=== PATIENT | male | born 1955 ===

== ENCOUNTER 2017-05-19 01:25 | Inpatient (IN) | payer MEDICAID, OTHER ==
[2017-05-19 02:21] LABS: BASO % 0.5 % (0.0-2.0); EOS # 0.2 K/uL (0.0-0.7); EOS % 2.6 % (0.0-4.0); HEMOGLOBIN 13.5 g/dL (12.0-18.0); LYMPH # 2.8 K/uL (1.0-4.3); LYMPH % 29.6 % (20.0-40.0); MEAN CELL VOLUME 85.5 fl (80.0-94.0); MEAN CORPUSCULAR HEMOGLOBIN 28.6 pg (27.0-31.0); MEAN CORPUSCULAR HGB CONC 33.4 g/dL (33.0-37.0); MEAN PLATELET VOLUME 8.1 fl (7.2-11.7); MONO # 0.8 K/uL (0.0-0.8); MONO % 8.1 % (0.0-10.0); NEUT # 5.6 K/uL (1.8-7.0); NEUT % 59.2 % (50.0-75.0); NRBC % 0.1 % (0.0-0.0); RBC 4.74 Mil/uL (4.40-5.90); WHITE BLOOD COUNT 9.5 K/uL (4.8-10.8)
[2017-05-19 02:29] LABS: BLOOD UREA NITROGEN 27 mg/dl (9-20); CALCIUM 9.1 mg/dL (8.4-10.2); GFR AFRICAN-AMERICAN > 60; GFR NON-AFRICAN AMERICAN > 60
--- NOTE | 2017-05-19 02:34 | ED PDOC ---
HPI: Back Time Seen by Provider: 05/19/17 01:37 Chief Complaint (Nursing): Back Pain Chief Complaint (Provider): Acute onset of right flank pain History Per: Patient History/Exam Limitations: no limitations Onset/Duration Of Symptoms: Days Current Symptoms Are (Timing): Still Present Quality Of Discomfort: Sharp Pain Scale Rating Of: 9 Previous Symptoms: Back Pain, Other (Kidney stones ) Exacerbating Factor(s): Nothing Additional Complaint(s): Acute onset at home. Pt states it feels similar to previous kidney stones. No injury. Past Medical History Reviewed: Historical Data, Nursing Documentation, Vital Signs Vital Signs: Last Vital Signs Temp 98.0 F 05/19/17 01:43 Pulse 66 05/19/17 01:43 Resp 18 05/19/17 01:43 BP 134/86 05/19/17 01:43 Pulse Ox 98 05/19/17 01:43 - Medical History PMH: No Chronic Diseases - Surgical History Surgical History: No Surg Hx - Family History Family History: States: No Known Family Hx - Living Arrangements Living Arrangements: With Family - Social History Current smoker - smoking cessation education provided: No - Allergies Allergies/Adverse Reactions: Allergies Allergy/AdvReac Type Severity Reaction Status Date / Time No Known Allergies Allergy Verified 05/19/17 01:42 Review of Systems ROS Statement: Except As Marked, All Systems Reviewed And Found Negative Constitutional: Negative for: Fever, Chills Cardiovascular: Negative for: Chest Pain Respiratory: Negative for: Cough, Shortness of Breath Gastrointestinal: Positive for: Nausea, Abdominal Pain. Negative for: Vomiting Physical Exam - Reviewed Nursing Documentation Reviewed: Yes Vital Signs Reviewed: Yes - Physical Exam Appears: Positive for: Well, Non-toxic, No Acute Distress Head Exam: Positive for: ATRAUMATIC, NORMAL INSPECTION, NORMOCEPHALIC Skin: Positive for: Normal Color, Warm, DRY Eye Exam: Positive for: Normal appearance ENT: Positive for: Normal ENT Inspection Neck: Positive for: Normal, Painless ROM Cardiovascular/Chest: Positive for: Regular Rate, Rhythm Respiratory: Positive for: Normal Breath Sounds. Negative for: Accessory Muscle Use, Respiratory Distress Gastrointestinal/Abdominal: Positive for: Normal Exam, Bowel Sounds, Soft. Negative for: Tenderness Back: Positive for: Normal Inspection Extremity: Positive for: Normal ROM Neurologic/Psych: Positive for: Alert, Oriented - Laboratory Results Result Diagrams: 05/19/17 02:10 05/19/17 02:10 - ECG O2 Sat by Pulse Oximetry: 98 Medical Decision Making Medical Decision Making: CT (+) 3 x 3 x 6 cm stone, proximal ureter with moderate hydro 0550 - Called Dr. Vaughan Discussed admission with patient. Patient would like to be admitted. Disposition - Clinical Impression Clinical Impression: Ureteral stone with hydronephrosis - Patient ED Disposition Is Patient to be Admitted: Yes - Disposition Disposition Time: 06:00 Condition: STABLE Forms: [facility] ([place])
--- NOTE | 2017-05-19 05:28 | CT ---
EXAM: CT Abdomen and Pelvis Without Intravenous Contrast CLINICAL HISTORY: 61 years old, male; Pain; Abdominal pain; Flank; Right; Additional info: Right flank pain, HX stones TECHNIQUE: Axial computed tomography images of the abdomen and pelvis without intravenous contrast. All CT scans at this facility use one or more dose reduction techniques, viz.: automated exposure control; ma/kV adjustment per patient size (including targeted exams where dose is matched to indication; i.e. head); or iterative reconstruction technique. Coronal and sagittal reformatted images were created and reviewed. COMPARISON: No relevant prior studies available. FINDINGS: Lower thorax: No acute findings. ABDOMEN: Liver: The liver is within normal limits for this noncontrast study. Gallbladder and bile ducts: Unremarkable. No calcified stones. No ductal dilation. Pancreas: Unremarkable. No ductal dilation. Spleen: Unremarkable. No splenomegaly. Adrenals: Unremarkable. No mass. Kidneys and ureters: There are multiple bilateral renal collecting system calcifications. There is moderate left hydronephrosis and hydroureter secondary to a 3 x 3 x 6 mm stone in the proximal ureter.There is mild inflammatory left perinephric stranding. Stomach and bowel: There is no wall thickening or pericolonic stranding to suggest colitis. No obstruction. Appendix: A normal appendix is identified. PELVIS: Bladder: Unremarkable. No stones. Reproductive: Unremarkable as visualized. ABDOMEN and PELVIS: Intraperitoneal space: Unremarkable. No free air. No significant fluid collection. Bones/joints: No acute fracture. No dislocation. Soft tissues: There is a fat-containing umbilical hernia. Vasculature: Unremarkable. No abdominal aortic aneurysm. Lymph nodes: Unremarkable. No enlarged lymph nodes. IMPRESSION: Moderate left hydroureteronephrosis secondary to a proximal ureteral stone.
[2017-05-19 05:33] LABS: SQUAMOUS EPITHIAL < 1 /hpf (0-5); URINE BILIRUBIN NEGATIVE (NEGATIVE); URINE BLOOD LARGE (NEGATIVE); URINE CALCIUM OXALATE CRYSTALS OCC /hpf (<OCC); URINE CLARITY CLOUDY (Clear); URINE COLOR YELLOW (YELLOW); URINE GLUCOSE (UA) NEG (Normal); URINE LEUKOCYTE ESTERASE NEG Leu/uL (Negative); URINE PROTEIN 100 mg/dL (NEGATIVE); URINE UROBILINOGEN 0.2-1.0 mg/dL (0.2-1.0)
[2017-05-19] MEDS ORDERED: Pneumococcal 23-Valent Vaccine IM ONE (10:04)
[2017-05-19] MEDS ORDERED: HYDROmorphone 0.5 mg/0.5 ml ISec IVP PRN (10:16)
[2017-05-19] MEDS ORDERED: Influenza Vaccine 18yr & older 0.5 ML/45 MCG SYR IM ONE (10:24)
[2017-05-19] MEDS ORDERED: Apap-Butalbital-Caffeine 325-50-40mg Tab PO ONE (19:00)
--- NOTE | 2017-05-20 08:03 | RAD ---
HISTORY: MD ORDER COMPARISON: Abdomen pelvis CT without contrast 05/19/2017. FINDINGS: BOWEL: Nonobstructive bowel gas pattern again appreciate with prominent retained fecal material identified in the right hemicolon once again. A 9 mm intrarenal calculus is appreciate the left renal fossa corresponding to an upper pole intrarenal calculus in prior CT noted above. A 6.5 mm triangular shaped calculus is unchanged at the medial left mendez abdomen at the level of the L3-4 disc interspace once again likely unchanged in position as compared to abdomen pelvis CT noted above. Phleboliths are reiterated in the pelvis. BONES: No suspicious bony findings. OTHER FINDINGS: None. IMPRESSION: The previously demonstrated 6.5 mm left ureteral calculus is not significantly changed in position at the L3-4 disc interspace level of the region of the ureter as compared to prior abdomen and pelvis CT 05/19/2017. Intrarenal calculus again evident left kidney. Nonobstructive bowel gas pattern.
[2017-05-20] MEDS ORDERED: Iohexol 300 100 ML IJ ONE (11:01)
[2017-05-20] MEDS ORDERED: cefTRIAXone (Rocephin) 1 gm Inj ONE (11:01)
[2017-05-20] MEDS ORDERED: Propofol 10 mg/ml Inj (20 ML) ONE ×3 (11:18→12:12)
[2017-05-20] MEDS ORDERED: ePHEDrine 50 mg/ml Inj ONE (11:18)
[2017-05-20] MEDS ORDERED: Rocuronium 10 mg/ml (5 ml) ONE (11:18)
[2017-05-20] MEDS ORDERED: Midazolam 2 MG/2 ML VIAL ONE (11:18)
[2017-05-20] MEDS ORDERED: Succinylcholine 200 mg/10 ml Inj IV ONE (11:18)
[2017-05-20] MEDS ORDERED: Sodium Chloride 0.9% 10 ML IV ONE (11:22)
[2017-05-20] MEDS ORDERED: Lactated Ringer's 1,000 ML IV ONE ×2 (11:25→15:20)
[2017-05-20] MEDS ORDERED: cefTRIAXone (Rocephin) 1 gm Inj IVPB ONE (11:32)
[2017-05-20] MEDS: HYDROmorphone 0.5 mg/0.5 ml ISec IVP PRN ×2 (13:43→14:46)
[2017-05-20 17:07] VITALS: BP 129/78; PULSE 67; RESP 20; TEMP 98; O2SAT 98
--- NOTE | 2017-05-20 17:08 | RAD ---
PROCEDURE: Intraoperative Fluoroscopy. HISTORY: CYSTO: LEFT URETERAL STENT INSERTION FINDINGS: Fluoroscopic assistance was provided. 1.0 minutes fluoroscopy time utilized during this procedure. Please refer to the operative report from [facility].
--- NOTE | 2017-06-05 08:23 | OP ---
PROCEDURE DATE: 05/20/2017 PREOPERATIVE DIAGNOSIS: Left renal colic secondary to left renal calculus. POSTOPERATIVE DIAGNOSIS: PROCEDURE PERFORMED ON THE PATIENT: Cystoscopy, left ureteroscopy and J-stent placement. DESCRIPTION OF PROCEDURE: The patient was placed on the operating room table in dorsal lithotomy position after he was given general anesthesia. The area of the groin was draped and prepped in the sterile manner. At this time, using a ureteroscope, I entered into the bladder atraumatically, identified the left ureteral orifice and over a floppy-tip guidewire, I advanced the ureteroscope to the level of renal pelvis. At this time, under fluoroscopy with the guidewire in place, I removed the ureteroscope and inserted a 6-[place] multi-[id number] double-[id number] stent. The string was left attached and was taped to the outside of his penis. Following this, the patient then was taken from the operating room in good condition. Dylan Vaughan MD
== END 2017-05-20 17:51 | disposition home or self-care (01) | DRG 694 ==
LOC: H.ER 01:25 → H.ERHOLD 06:01 → H.MEDSURG1 08:38
PROVIDERS: ADMIT Urology; ATTEND Urology
PROC: 3E0234Z Introduction of Serum, Toxoid and Vaccine into Muscle, Percutaneous Approach (ICD-10-PCS; 2017-05-19)
PROC: 0T778DZ Dilation of Left Ureter with Intraluminal Device, Via Natural or Artificial Opening Endoscopic (ICD-10-PCS; principal; 2017-05-20 12:00)
DX: N13.2 Hydronephrosis with renal and ureteral calculous obstruction (principal); Z87.442 Personal history of urinary calculi; Z23 Encounter for immunization

== ENCOUNTER 2017-05-31 07:24 | Emergency (ER) | payer MEDICAID, SELFPAY ==
[2017-05-31 07:24] VITALS: BMI 25.8
[2017-05-31 07:37] VITALS: O2SAT 98
--- NOTE | 2017-05-31 09:04 | ED PDOC ---
HPI: Male Pain Time Seen by Provider: 05/31/17 07:39 Chief Complaint (Nursing): Abdominal Pain History Per: Patient (patient presents to the ED because his ureteral stent is dislodged. Stent was inserted by Dr. Vaughan 1-2 weeks ago when he presented with kidney stones.) History/Exam Limitations: no limitations Past Medical History Reviewed: Historical Data, Nursing Documentation, Vital Signs Vital Signs: Last Vital Signs Temp Pulse Resp BP Pulse Ox 98 05/31/17 07:35 - Medical History PMH: Back Problems, Kidney Stones - Surgical History Surgical History: No Surg Hx - Family History Family History: States: No Known Family Hx - Home Medications Home Medications: Ambulatory Orders Medication Instructions Recorded Oxycodone HCl/Acetaminophen 1 tab PO QID PRN #15 tab 02/22/14 [Percocet 325 mg-5 mg] Tamsulosin HCl [Flomax] 0.4 mg PO DAILY #20 cap 02/22/14 Famotidine [Pepcid] 20 mg PO Q12 #20 tab 07/01/15 Ibuprofen [Motrin] 1 tab PO Q8 PRN #30 tab 02/10/16 - Allergies Allergies/Adverse Reactions: Allergies Allergy/AdvReac Type Severity Reaction Status Date / Time No Known Allergies Allergy Verified 05/31/17 07:34 Review of Systems ROS Statement: Except As Marked, All Systems Reviewed And Found Negative Genitourinary Male: Negative for: Dysuria, Hematuria Physical Exam - Reviewed Nursing Documentation Reviewed: Yes Vital Signs Reviewed: Yes - Physical Exam Appears: Positive for: Well, Non-toxic, No Acute Distress Head Exam: Positive for: ATRAUMATIC, NORMAL INSPECTION, NORMOCEPHALIC Skin: Positive for: Normal Color, Warm, DRY Eye Exam: Positive for: Normal appearance ENT: Positive for: Normal ENT Inspection Neck: Positive for: Normal Cardiovascular/Chest: Positive for: Regular Rate, Rhythm Respiratory: Positive for: CNT, Normal Breath Sounds Gastrointestinal/Abdominal: Positive for: Normal Exam, Bowel Sounds, Soft Male Genital Exam: Positive for: other (tip of catheter extending from urethra) Back: Positive for: Normal Inspection Extremity: Positive for: Normal ROM Neurologic/Psych: Positive for: Alert, Oriented - ECG O2 Sat by Pulse Oximetry: 98 Medical Decision Making Medical Decision Making: case d/w Dr. Vaughan. Patient had missed an appointment in [place] for further care. Instructed by Dr. Vaughan to remove catheter and instruct patient to followup in [place] as instructed. Disposition - Clinical Impression Clinical Impression: Kidney stone - Patient ED Disposition Is Patient to be Admitted: No Doctor Will See Patient In The: Office Counseled Patient/Family Regarding: Diagnosis, Need For Followup - Disposition Disposition: Routine/Home Disposition Time: 09:05 Condition: FAIR Instructions: Kidney Stones in Adults Print Language: LITHUANIAN - POA Present On Arrival: None
== END 2017-05-31 10:07 | disposition home or self-care (01) ==
LOC: MERGE 07:24 → H.ER 07:24
DX: N20.0 Calculus of kidney (principal)

== ENCOUNTER 2017-08-16 11:54 | Observation (INO) | payer MEDICAID, SELFPAY ==
[2017-08-16 11:55] VITALS: BMI 25.8
--- NOTE | 2017-08-16 15:52 | ED PDOC ---
HPI: Abdomen Time Seen by Provider: 08/16/17 12:49 Chief Complaint (Nursing): Abdominal Pain Chief Complaint (Provider): flank pain History Per: Patient (61 y/o male here with left sided flank pain that occurred after fall 2 days ago. No LOC/no head injury. Notes moderate left abdominal pain.) Past Medical History Reviewed: Historical Data, Nursing Documentation, Vital Signs Vital Signs: Last Vital Signs Temp 97.8 F 08/16/17 21:09 Pulse 55 L 08/16/17 21:09 Resp 14 08/16/17 21:09 BP 117/75 08/16/17 21:09 Pulse Ox 97 08/16/17 23:36 - Medical History PMH: Back Problems, Kidney Stones Denies: Chronic Kidney Disease - Family History Family History: States: No Known Family Hx - Home Medications Home Medications: Ambulatory Orders Medication Instructions Recorded No Known Home Med 05/19/17 - Allergies Allergies/Adverse Reactions: Allergies Allergy/AdvReac Type Severity Reaction Status Date / Time No Known Allergies Allergy Verified 05/19/17 01:42 Review of Systems ROS Statement: Except As Marked, All Systems Reviewed And Found Negative Physical Exam - Reviewed Nursing Documentation Reviewed: Yes Vital Signs Reviewed: Yes - Physical Exam Appears: Positive for: Well, Non-toxic, No Acute Distress Head Exam: Positive for: ATRAUMATIC, NORMAL INSPECTION, NORMOCEPHALIC Skin: Positive for: Normal Color, Warm, DRY Eye Exam: Positive for: EOMI, Normal appearance, PERRL ENT: Positive for: Normal ENT Inspection Neck: Positive for: Normal, Painless ROM Cardiovascular/Chest: Positive for: Regular Rate, Rhythm. Negative for: Chest Non Tender (mild lower chest wall tenderness.) Respiratory: Positive for: CNT, Normal Breath Sounds Gastrointestinal/Abdominal: Positive for: Normal Exam, Soft, Tenderness (left flank tenderness noted ) Back: Positive for: Normal Inspection Extremity: Positive for: Normal ROM Neurologic/Psych: Positive for: Alert, Oriented - Laboratory Results Result Diagrams: 08/16/17 16:29 08/16/17 16:29 - ECG O2 Sat by Pulse Oximetry: 97 - Progress ED Course And Treament: Plan: - CT Abdominal and Pelvis w/o PO or IV Contrast - CMP - Lipase - cbc (with differential) - PTT - Ribs Left and PA Chest X-Ray Time: 16:55 CT Abdomen and Pelvis w/o IV Contrast FINDINGS: LOWER THORAX: An interval 3.1 cm ovoid density is seen at the lateral left lower lobe base, pleural-based not previously identified in the same location on 05/19/[address] through the lung bases. This probably reflects a typical subsegmental atelectasis. Follow-up chest CT is advised in 3 months from the follow-up versus near term PET-CT. The bilateral lung bases are otherwise unremarkable. LIVER: Unremarkable. No gross lesion or ductal dilatation. GALLBLADDER AND BILE DUCTS: Unremarkable. PANCREAS: Unremarkable. No gross lesion or ductal dilatation. SPLEEN: Unremarkable. ADRENALS: Unremarkable. No mass. KIDNEYS AND URETERS: Interval borderline right hydroureteronephrosis is appreciated due to a spindle shaped calculus aligned parallel to the plane of the proximal right ureter measuring 4.5 x 2.8 x 7.0 mm obstructing the right ureter. The obstruction is at the approximate L3-4 disc interspace level of the lumbar spine. No definite right perinephric reaction identified. Prior left ureteral obstruction is been relieved with prominent para renal cyst again identified in the left kidney. Multiple intrarenal calculi identified at the left kidney with the 2 largest at the upper pole within a calyx, 11.0 mm greatest dimension at the more medial of the 2 and 5.4 mm at the more lateral of the 2. A solitary punctate intrarenal calculus is noted at the upper pole right kidney. VASCULATURE: Unremarkable. No aortic aneurysm. BOWEL: Unremarkable. No obstruction. No suspicious interval bowel findings in this unenhanced examination. APPENDIX: Unremarkable. Normal appendix. PERITONEUM: Unremarkable. No free fluid. No free air. LYMPH NODES: Unremarkable. No enlarged lymph nodes. BLADDER: Unremarkable. REPRODUCTIVE: Enlarged prostate gland reiterated. BONES: No acute fracture. OTHER FINDINGS: None. IMPRESSION: 1. A 7 mm intrarenal calculus is added identified spindle shaped obstructing the proximal right ureter causing borderline right hydroureteronephrosis. Greatest transverse dimension of this calculus is 4.5 mm. Please see discussion above. 2. Nonobstructing intrarenal calculi greater the left and right kidney. Prior left obstructive uropathy is not relieved with no intraureteral calculus identified in the interval. 3. Enlarged prostate gland reiterated. 4. A 3.1 cm ovoid density seen at the lateral left lower lobe probably reflecting atypical atelectasis. An interval mass is not felt to be likely as this was not present in prior 05/19/[address] A precautionary follow-up chest is advised in 3 months to demonstrate resolution or PET-CT in the near term. Time: 17:00 Ribs Left PA Chest X-Ray FINDINGS: LEFT RIBS: No fracture or focal lesion visualized. LUNGS: Clear. PLEURA: No pneumothorax or pleural fluid. CARDIOVASCULAR: Normal sized heart. No pulmonary vascular congestion. OTHER FINDINGS: Left brain calculus disease IMPRESSION: Unremarkable radiographs of the chest and left ribs. No left rib fracture. Time: 18:21 - Sodium Chloride 0.9% 1,000 ml IV 500 mls/hr - Toradol 15 mg IVP D/W Dr. Rodriges. Will evaluate tomorrow for possible stent placement. Possible OR tomorrow at 9:30am Patient unable to give urine in ED for UA Pt will be admitted to Observation for Hyronephrosis and Kidney Stone under the care of Dr. Pepito Kelley. Medical Decision Making Medical Decision Making: As patient is noted to have hydronephrosis with obstructing kidney stone and unable to urinate in ED, patient is to be admitted for urology evaluation/ treatment. Disposition - Clinical Impression Clinical Impression: Ureteral stone with hydronephrosis - Patient ED Disposition Is Patient to be Admitted: Yes - Disposition Disposition Time: 20:10 Condition: FAIR - Pt Status Changed To: Hospital Disposition Of: Observation
[2017-08-16 16:33] LABS: BASO % 0.6 % (0.0-2.0); EOS # 0.2 K/uL (0.0-0.7); HEMOGLOBIN 13.5 g/dL (12.0-18.0); LYMPH # 1.6 K/uL (1.0-4.3); LYMPH % 26.6 % (20.0-40.0); MEAN CELL VOLUME 86.1 fl (80.0-94.0); MEAN CORPUSCULAR HEMOGLOBIN 28.6 pg (27.0-31.0); MEAN CORPUSCULAR HGB CONC 33.2 g/dL (33.0-37.0); MEAN PLATELET VOLUME 7.8 fl (7.2-11.7); MONO # 0.4 K/uL (0.0-0.8); NEUT # 3.8 K/uL (1.8-7.0); NEUT % 61.8 % (50.0-75.0); RBC 4.73 Mil/uL (4.40-5.90); RED CELL DISTRIBUTION WIDTH 12.5 % (11.5-14.5); WHITE BLOOD COUNT 6.2 K/uL (4.8-10.8)
[2017-08-16 16:52] LABS: INR 1.1 (0.9-1.2); PARTIAL THROMBOPLASTIN TIME 38.6 Seconds (25.6-37.1); PROTHROMBIN TIME 11.7 Seconds (9.8-13.1)
--- NOTE | 2017-08-16 16:56 | CT ---
PROCEDURE: CT Abdomen and Pelvis without intravenous contrast HISTORY: left flank pain r/o rib fx r/o renal contusion COMPARISON: Noncontrast abdomen and pelvis CT 05/19/2017. TECHNIQUE: Helical CT of the abdomen and pelvis was performed without oral or intravenous contrast as per referring physician request. Contrast dose: None Radiation dose: Total exam DLP = 669.16 mGy-cm. This CT exam was performed using one or more of the following dose reduction techniques: Automated exposure control, adjustment of the mA and/or kV according to patient size, and/or use of iterative reconstruction technique. FINDINGS: LOWER THORAX: An interval 3.1 cm ovoid density is seen at the lateral left lower lobe base, pleural-based not previously identified in the same location on 05/19/[address] through the lung bases. This probably reflects a typical subsegmental atelectasis. Follow-up chest CT is advised in 3 months from the follow-up versus near term PET-CT. The bilateral lung bases are otherwise unremarkable. LIVER: Unremarkable. No gross lesion or ductal dilatation. GALLBLADDER AND BILE DUCTS: Unremarkable. PANCREAS: Unremarkable. No gross lesion or ductal dilatation. SPLEEN: Unremarkable. ADRENALS: Unremarkable. No mass. KIDNEYS AND URETERS: Interval borderline right hydroureteronephrosis is appreciated due to a spindle shaped calculus aligned parallel to the plane of the proximal right ureter measuring 4.5 x 2.8 x 7.0 mm obstructing the right ureter. The obstruction is at the approximate L3-4 disc interspace level of the lumbar spine. No definite right perinephric reaction identified. Prior left ureteral obstruction is been relieved with prominent para renal cyst again identified in the left kidney. Multiple intrarenal calculi identified at the left kidney with the 2 largest at the upper pole within a calyx, 11.0 mm greatest dimension at the more medial of the 2 and 5.4 mm at the more lateral of the 2. A solitary punctate intrarenal calculus is noted at the upper pole right kidney. VASCULATURE: Unremarkable. No aortic aneurysm. BOWEL: Unremarkable. No obstruction. No suspicious interval bowel findings in this unenhanced examination. APPENDIX: Unremarkable. Normal appendix. PERITONEUM: Unremarkable. No free fluid. No free air. LYMPH NODES: Unremarkable. No enlarged lymph nodes. BLADDER: Unremarkable. REPRODUCTIVE: Enlarged prostate gland reiterated. BONES: No acute fracture. OTHER FINDINGS: None. IMPRESSION: 1. A 7 mm intrarenal calculus is added identified spindle shaped obstructing the proximal right ureter causing borderline right hydroureteronephrosis. Greatest transverse dimension of this calculus is 4.5 mm. Please see discussion above. 2. Nonobstructing intrarenal calculi greater the left and right kidney. Prior left obstructive uropathy is not relieved with no intraureteral calculus identified in the interval. 3. Enlarged prostate gland reiterated. 4. A 3.1 cm ovoid density seen at the lateral left lower lobe probably reflecting atypical atelectasis. An interval mass is not felt to be likely as this was not present in prior 05/19/[address] A precautionary follow-up chest is advised in 3 months to demonstrate resolution or PET-CT in the near term.
[2017-08-16 16:58] LABS: ALB/GLOB RATIO 1.1 (1.0-2.1); ALBUMIN 4.2 g/dL (3.5-5.0); ALT/SGPT 37 U/L (21-72); AST/SGOT 32 U/L (17-59); BLOOD UREA NITROGEN 22 mg/dl (9-20); GFR AFRICAN-AMERICAN > 60; GFR NON-AFRICAN AMERICAN > 60; LIPASE 65 U/L (23-300)
--- NOTE | 2017-08-16 17:09 | RAD ---
PROCEDURE: Radiographs of the Chest and Left Ribs. HISTORY: left sided chest pain COMPARISON: None availableIn. TECHNIQUE: Frontal radiograph of the chest and multiple oblique radiographs of the left ribs were obtained. FINDINGS: LEFT RIBS: No fracture or focal lesion visualized. LUNGS: Clear. PLEURA: No pneumothorax or pleural fluid. CARDIOVASCULAR: Normal sized heart. No pulmonary vascular congestion. OTHER FINDINGS: Left brain calculus disease IMPRESSION: Unremarkable radiographs of the chest and left ribs. No left rib fracture.
[2017-08-16] MEDS ORDERED: Sodium Chloride 0.9% 1,000 ML IV STA (18:21)
[2017-08-16] MEDS ORDERED: Ciprofloxacin 400mg/200ml D5W 400 MG/200 ML BAG IVPB STA (19:46)
--- NOTE | 2017-08-16 20:13 | CP.PCM.HP ---
History of Present Illness - History of Present Illness History of Present Illness: PMD: None Chief Complaint: Left back pain The patient was seen and examined in the ED HPI: This is a 61 years old Cymro speaking male with hx of Kidney stone who comes with a two days hx of pain across the lower back, which began after he fell backwards hitting his back. The pain is worse at the left flank becoming progressively severe in intensity and radiating anterior to the left lateral abdominal wall and LLQ. He has not taken any analgesic for the pain at home. No Dysuria, frequency, macro hematuria, fever, coughing nor chest pain. PMH: Nephrolithiasis PSH: Surgery in [facility] at left lower abdomen for kidney stone removal SH: Former Smoker; No alcohol; No illegal drug use; Live with family; Unemployed FH: States: no known family Hx Allergies: NKDA Medication: denies Present on Admission - Present on Admission Any Indicators Present on Admission: No History of DVT/PE: No History of Uncontrolled Diabetes: No Urinary Catheter: No Decubitus Ulcer Present: No Review of Systems - Constitutional Constitutional: Headache. absent: Chills, Fever, Weakness - EENT Eyes: absent: Blurred Vision, Diplopia, Floaters, Photophobia, Requires Corrective Lenses Ears: absent: Decreased Hearing, Tinnitus, Dizziness Nose/Mouth/Throat: absent: Epistaxis, Nasal Congestion, Sinus Pain, Sinus Pressure - Cardiovascular Cardiovascular: absent: Chest Pain, Dyspnea, Edema - Respiratory Respiratory: absent: Cough, Dyspnea, Wheezing, Stridor - Gastrointestinal Gastrointestinal: absent: Abdominal Pain, Constipation, Nausea, Vomiting - Genitourinary Genitourinary: Flank Pain. absent: Dysuria, Hematuria, Urinary Frequency - Musculoskeletal Musculoskeletal: Back Pain. absent: Arthralgias, Joint Swelling, Numbness - Integumentary Integumentary: absent: Pruritus, Rash, Skin Ulcer, Sores, Striae, Swelling - Neurological Neurological: Headaches. absent: Confusion, Dizziness, Focal Weakness, Weakness - Psychiatric Psychiatric: absent: Anxiety, Depression, Panic Attacks - Endocrine Endocrine: absent: Palpitations, Polydipsia, Polyphagia, Polyuria - Hematologic/Lymphatic Hematologic: absent: Easy Bleeding, Easy Bruising Past Patient History - Infectious Disease Hx of Infectious Diseases: None - Past Medical History & Family History Past Medical History?: Yes - Past Social History Smoking Status: Former Smoker Chewing Tobacco Use: No Cigar Use: No Alcohol: None Drugs: Denies Home Situation {Lives}: With Family - CARDIAC Hx Cardiac Disorders: No - PULMONARY Hx Respiratory Disorders: No - NEUROLOGICAL Hx Neurological Disorder: No - HEENT Hx HEENT Problems: No - RENAL Hx Chronic Kidney Disease: No Hx Kidney Stones: Yes - ENDOCRINE/METABOLIC Hx Endocrine Disorders: No - HEMATOLOGICAL/ONCOLOGICAL Hx Blood Disorders: No - INTEGUMENTARY Hx Dermatological Problems: No - MUSCULOSKELETAL/RHEUMATOLOGICAL Hx Musculoskeletal Disorders: No Hx Falls: No - GASTROINTESTINAL Hx Gastrointestinal Disorders: No - GENITOURINARY/GYNECOLOGICAL Hx Genitourinary Disorders: No - PSYCHIATRIC Hx Psychophysiologic Disorder: No Hx Substance Use: No - SURGICAL HISTORY Hx Surgeries: Yes Other/Comment: For Left kidney stone removal? in [facility] 1990s - ANESTHESIA Hx Anesthesia: Yes Hx Anesthesia Reactions: No Meds Allergies/Adverse Reactions: Allergies Allergy/AdvReac Type Severity Reaction Status Date / Time No Known Allergies Allergy Verified 05/19/17 01:42 Physical Exam - Constitutional Appears: No Acute Distress - Head Exam Head Exam: ATRAUMATIC, NORMAL INSPECTION, NORMOCEPHALIC - Eye Exam Eye Exam: EOMI, Normal appearance Pupil Exam: NORMAL ACCOMODATION, PERRL - ENT Exam ENT Exam: Mucous Membranes Moist, Normal Exam - Neck Exam Neck exam: Positive for: Full Rom, Normal Inspection. Negative for: Lymphadenopathy, Tenderness - Respiratory Exam Respiratory Exam: Clear to Auscultation Bilateral. absent: Rales, Rhonchi, Wheezes - Cardiovascular Exam Cardiovascular Exam: REGULAR RHYTHM, RRR, +S1, +S2. absent: Gallop, JVD - GI/Abdominal Exam GI & Abdominal Exam: Normal Bowel Sounds, Soft. absent: Mass, Organomegaly - Rectal Exam Rectal Exam: Deferred - Extremities Exam Extremities exam: Negative for: calf tenderness, full ROM, pedal edema - Back Exam Back exam: CVA tenderness (R), NORMAL INSPECTION Additional comments: At the back there is no edema, erythema rashes nor bruises. The left flank is very tender to palpation - Neurological Exam Neurological exam: Alert, CN II-XII Intact, Oriented x3, Reflexes Normal - Psychiatric Exam Psychiatric exam: Normal Affect, Normal Mood - Skin Skin Exam: Dry, Intact, Normal Color, Warm Results - Vital Signs Recent Vital Signs: Last Vital Signs Temp 98.0 F 08/16/17 17:30 Pulse 72 08/16/17 17:30 Resp 14 08/16/17 17:30 BP 118/79 08/16/17 17:30 Pulse Ox 97 08/16/17 20:12 - Labs Result Diagrams: 08/16/17 16:29 08/16/17 16:29 Labs: Laboratory Results - last 24 hr 08/16/17 08/16/17 08/16/17 16:29 16:29 16:29 WBC 6.2 RBC 4.73 Hgb 13.5 Hct 40.7 MCV 86.1 MCH 28.6 MCHC 33.2 RDW 12.5 Plt Count 236 MPV 7.8 Neut % (Auto) 61.8 Lymph % (Auto) 26.6 [place] % (Auto) 7.0 Eos % (Auto) 4.0 Baso % (Auto) 0.6 Neut # (Auto) 3.8 Lymph # (Auto) 1.6 [place] # (Auto) 0.4 Eos # (Auto) 0.2 Baso # (Auto) 0.0 PT 11.7 INR 1.1 APTT 38.6 H Sodium 141 Potassium 3.7 Chloride 103 Carbon Dioxide 25 Anion Gap 17 BUN 22 H Creatinine 0.7 L Est GFR ( Amer) > 60 Est GFR (Non-Af Amer) > 60 Random Glucose 93 Calcium 9.0 Total Bilirubin 0.7 AST 32 ALT 37 Alkaline Phosphatase 126 Total Protein 8.0 Albumin 4.2 Globulin 3.8 Albumin/Globulin Ratio 1.1 Lipase 65 - Imaging and Cardiology CT Abdomen/Pelvis Status: Report reviewed by me Additional comment: 7mm intra-renal calculus obstructing the proximal right ureter causing Hydroureteronephrosis. Non obstructing intra-renal calculi greater at the left than the right kidney. Enlarge prostate. 3.1 density at the lateral left lower lobe. Probably atypical atelectasis. Follow up Chest CT in 3 months. Chest x-ray Status: Image reviewed by me Additional comment: No infiltrate Left Rib X Ray Additional comment: No fracture. Assessment & Plan - Assessment and Plan (Free Text) Assessment: #. Back pain #. Bilateral Nephrolithiasis #. Right hydroureteronephrose #. Dehydration Plan: 61 years old Cymro speaking male with hx of Kidney stone who comes with a two days hx of pain across the lower back, which began after he fell backwards hitting his back. The pain is worse at the left flank becoming progressively severe in intensity and radiating anterior to the left lateral abdominal wall and LLQ. He has not taken any analgesic for the pain at home. No Dysuria, frequency, macro hematuria, fever, coughing nor chest pain. #. Back pain on the left could be renal colic. No evidence of UTI pyelonephritis. This pain could be musculo skeletal in origin. - CT abdomen/Pelvis showed Bilateral nephrolithiasis - Consult Dr Ray urologist - Urinalysis and culture - Blood Culture - Pain management with Lidoderm patch and Morphine Sulphate - I Spoke to Dr Ray who will review the CT abdomen/Pelvis and make decision on further treatment #. Bilateral Nephrolithiasis with Right hydroureteronephrose - Urology on consult for probable Ureteral stent placement #. Dehydration - IV Fluids #. 3.1 mm Left Lower lobe Lung Density - Follow up OP for repeat Chest CT in 3 months #. DVT prophylaxis with SCD. No Anticoagulant because the patient may be going to surgery in AM #. Code Status: Full - Date & Time Date: 08/16/17 Time: 20:13
[2017-08-16] MEDS: Sodium Chloride 0.9% 1,000 ML IV SCH (21:25)
[2017-08-16] MEDS: Lidocaine 5% Patch TD SCH (22:55)
[2017-08-17 00:29] LABS: SQUAMOUS EPITHIAL < 1 /hpf (0-5); URINE BILIRUBIN NEGATIVE (NEGATIVE); URINE BLOOD NEGATIVE (NEGATIVE); URINE CLARITY CLEAR (Clear); URINE COLOR YELLOW (YELLOW); URINE GLUCOSE (UA) NEG (Normal); URINE HYALINE CAST 0-2 /hpf (0-2); URINE LEUKOCYTE ESTERASE NEG Leu/uL (Negative); URINE PROTEIN NEGATIVE (NEGATIVE); URINE UROBILINOGEN 0.2-1.0 mg/dL (0.2-1.0)
[2017-08-17 01:22] VITALS: O2SAT 96
[2017-08-17] MEDS: Sodium Chloride 0.9% 1,000 ML IV SCH (05:38)
[2017-08-17] MEDS ORDERED: Ciprofloxacin 400mg/200ml D5W 400 MG/200 ML BAG IVPB ONE (09:00)
--- NOTE | 2017-08-17 10:33 | CP.PCM.DIS ---
Provider - Provider Date of Admission: 08/16/17 20:08 Attending physician: Pepito Kelley Primary care physician: None Consults: Urology consult Time Spent in preparation of Discharge (in minutes): 10 Hospital Course - Lab Results Lab Results: Most Recent Lab Values WBC 6.2 K/uL (4.8-10.8) 08/16/17 16:29 RBC 4.73 Mil/uL (4.40-5.90) 08/16/17 16:29 Hgb 13.5 g/dL (12.0-18.0) 08/16/17 16:29 Hct 40.7 % (35.0-51.0) 08/16/17 16: MCV 86.1 fl (80.0-94.0) 08/16/17 16: MCH 28.6 pg (27.0-31.0) 08/16/17 16: MCHC 33.2 g/dL (33.0-37.0) 08/16/17 16: RDW 12.5 % (11.5-14.5) 08/16/17 16: Plt Count 236 K/uL (130-400) 08/16/17 16: MPV 7.8 fl (7.2-11.7) 08/16/17 16:29 Neut % (Auto) 61.8 % (50.0-75.0) 08/16/17 16:29 Lymph % (Auto) 26.6 % (20.0-40.0) 08/16/17 16: [place] % (Auto) 7.0 % (0.0-10.0) 08/16/17 16:29 Eos % (Auto) 4.0 % (0.0-4.0) 08/16/17 16:29 Baso % (Auto) 0.6 % (0.0-2.0) 08/16/17 16:29 Neut # (Auto) 3.8 K/uL (1.8-7.0) 08/16/17 16:29 Lymph # (Auto) 1.6 K/uL (1.0-4.3) 08/16/17 16:29 [place] # (Auto) 0.4 K/uL (0.0-0.8) 08/16/17 16:29 Eos # (Auto) 0.2 K/uL (0.0-0.7) 08/16/17 16:29 Baso # (Auto) 0.0 K/uL (0.0-0.2) 08/16/17 16:29 PT 11.7 Seconds (9.8-13.1) 08/16/17 16:29 INR 1.1 (0.9-1.2) 08/16/17 16:29 APTT 38.6 Seconds (25.6-37.1) H 08/16/17 16:29 Sodium 141 mmol/l (132-148) 08/16/17 16:29 Potassium 3.7 MMOL/L (3.6-5.0) 08/16/17 16:29 Chloride 103 mmol/L (98-107) 08/16/17 16:29 Carbon Dioxide 25 mmol/L (22-30) 08/16/17 16:29 Anion Gap 17 (10-20) 08/16/17 16:29 BUN 22 mg/dl (9-20) H 08/16/17 16:29 Creatinine 0.7 mg/dl (0.8-1.5) L 08/16/17 16:29 Est GFR ( Amer) > 60 08/16/17 16:29 Est GFR (Non-Af Amer) > 60 08/16/17 16:29 Random Glucose 93 mg/dL (75-110) 08/16/17 16:29 Calcium 9.0 mg/dL (8.4-10.2) 08/16/17 16:29 Total Bilirubin 0.7 mg/dl (0.2-1.3) 08/16/17 16:29 AST 32 U/L (17-59) 08/16/17 16:29 ALT 37 U/L (21-72) 08/16/17 16:29 Alkaline Phosphatase 126 U/L (38-126) 08/16/17 16:29 Total Protein 8.0 G/DL (6.3-8.2) 08/16/17 16:29 Albumin 4.2 g/dL (3.5-5.0) 08/16/17 16:29 Globulin 3.8 gm/dL (2.2-3.9) 08/16/17 16:29 Albumin/Globulin Ratio 1.1 (1.0-2.1) 08/16/17 Lipase 65 U/L (23-300) 08/16/17: Urine Color Yellow (YELLOW) 08/16/17 Urine Clarity Clear (Clear) 08/16/17 Urine pH 7.0 (5.0-8.0) 08/16/17: Ur Specific [place] 1.013 (1.003-1.030) 08/16/17 Urine Protein Negative mg/dL (NEGATIVE) 08/16/17 Urine Glucose (UA) Neg mg/dL (Normal) 08/16/17 Urine Ketones Negative mg/dL (NEGATIVE) 08/16/17 Urine Blood Negative (NEGATIVE) 08/16/17 Urine Nitrate Negative (NEGATIVE) 08/16/17 Urine Bilirubin Negative (NEGATIVE) 08/16/17 Urine Urobilinogen 0.2-1.0 mg/dL (0.2-1.0) 08/16/17 Ur Leukocyte Esterase Neg James/uL (Negative) 08/16/17 Urine RBC (Auto) 4 /hpf (0-3) H 08/16/17: Urine Microscopic WBC 1 /hpf (0-5) 08/16/17 Ur Squamous Epith Cells < 1 /hpf (0-5) 08/16/17 Hyaline Casts 0-2 /hpf (0-2) 08/16/17 Blood Type O POSITIVE 08/16/17 20:00 Antibody Screen Negative 08/16/17 20:00 BBK History Checked No verified bt 08/16/17 20:00 - Hospital Course Hospital Course: 61 years old [place]ian speaking male with hx of Kidney stone came with a two days hx of pain across the lower back, which began after he fell backwards hitting his back. The pain is worse at the left flank becoming progressively severe in intensity and radiating anterior to the left lateral abdominal wall and LLQ. He has not taken any analgesic for the pain at home. No Dysuria, frequency, macro hematuria, fever, coughing nor chest pain. Ct abdomen ands pelvis showed :1. A 7 mm intrarenal calculus is added identified spindle shaped obstructing the proximal right ureter causing borderline right hydroureteronephrosis. Greatest transverse dimension of this calculus is 4.5 mm. 2. Nonobstructing intrarenal calculi greater the left and right kidney. Prior left obstructive uropathy is not relieved with no intraureteral calculus identified in the interval. 3. Enlarged prostate gland reiterated. 4. A 3.1 cm ovoid density seen at the lateral left lower lobe probably reflecting atypical atelectasis. An interval mass is not felt to be likely as this was not present in prior 05/19/[address] A precautionary follow-up chest is advised in 3 months to demonstrate resolution or PET-CT in the near term He was given IV morphine, Toradol for pain control and Cipro prophylactically UA reported as clean Urology was consulted and patent placed under observation in med/surg. Patient at present is hemodynamically stable, afebrile, voiding freely with no more abdominal pain . As per DR. Rodriges [id number] can be discharged home with follow up with Dr. Rodriges at his office on Saturday Will d/c patient home. 1. Left back pain most likely muskuloskeletal- resolved tylenol prn 2.Bilateral Nephrolithiasis with Right hydroureteronephrose and right obstructing calculi follow up with Dr. Rodriges 3. Enlarged prostate- follow up with Dr. Rodriges 4. Dehydration received IV Fluids 5. 3.1 mm Left Lower lobe Lung Density most likely atelectasis Follow up with repeat Chest CT in 3 months Discharge Exam - Head Exam Head Exam: ATRAUMATIC, NORMAL INSPECTION, NORMOCEPHALIC - Eye Exam Eye Exam: EOMI, Normal appearance, PERRL Pupil Exam: NORMAL ACCOMODATION - ENT Exam ENT Exam: Mucous Membranes Moist, Normal Exam - Neck Exam Neck exam: Full Rom, Normal Inspection - Respiratory Exam Respiratory Exam: Clear to PA & Lateral, NORMAL BREATHING PATTERN. absent: Rales, Rhonchi, Wheezes - Cardiovascular Exam Cardiovascular Exam: REGULAR RHYTHM, RRR, +S1, +S2. absent: JVD - GI/Abdominal Exam GI & Abdominal Exam: Normal Bowel Sounds, Soft. absent: Distended, Guarding, Rebound, Tenderness - Rectal Exam Rectal Exam: Deferred - Extremities Exam Extremities exam: normal capillary refill, normal inspection, pedal pulses present - Back Exam Back exam: NORMAL INSPECTION - Neurological Exam Neurological exam: Alert, CN II-XII Intact, Oriented x3, Reflexes Normal - Psychiatric Exam Psychiatric exam: Normal Affect, Normal Mood - Skin Skin Exam: Dry, Intact, Normal Color, Warm Discharge Plan - Discharge Medications Prescriptions: Tamsulosin [Flomax] 0.4 mg PO DAILY #30 cap - Follow Up Plan Condition: STABLE Disposition: HOME/ ROUTINE Patient education suggested?: Yes Instructions: Hydronephrosis in Adults, Urinary Obstruction (DC), Kidney Stones (DC) Referrals: Anatoly Rodriges MD [Medical Doctor] -
[2017-08-17] MEDS: Lidocaine 5% Patch TD SCH (10:45)
[2017-08-17 11:46] VITALS: BP 130/75; PULSE 54; RESP 20; TEMP 98.1
--- NOTE | 2017-08-19 11:43 | CARD ---
APPROVED REPORT EKG Measurement Heart [id number] <Conclusion> Sinus bradycardia Otherwise normal ECG
== END 2017-08-17 13:09 | disposition home or self-care (01) ==
LOC: H.ER 11:54 → H.ERHOLD 20:08 → H.MEDSURG1 21:13
PROVIDERS: ADMIT Internal Medicine; ATTEND Internal Medicine
DX: N13.2 Hydronephrosis with renal and ureteral calculous obstruction (principal); N40.0 Benign prostatic hyperplasia without lower urinary tract symptoms; Z87.442 Personal history of urinary calculi; Z87.891 Personal history of nicotine dependence; N13.9 Obstructive and reflux uropathy, unspecified; Z91.81 History of falling; E86.0 Dehydration; J98.11 Atelectasis
CPT/HCPCS: 36415; 71101; 74176; 80053; 81003; 83690; 85025; 85610; 85730; 86850; 86900; 87086; 93005; 96361; 96365; 96375; 96376; 99284; G0378; J0744; J1885; J7030

== ENCOUNTER 2017-09-27 13:33 | Observation (INO) | payer SELFPAY ==
[2017-09-27 13:34] VITALS: BMI 25.8
--- NOTE | 2017-09-27 14:11 | ED PDOC ---
HPI: General Adult Time Seen by Provider: 09/27/17 14:11 Chief Complaint (Nursing): Chest Pain Chief Complaint (Provider): left shoulder pain, chest pain History Per: Patient, [employer] Supervisor (Luna PATEL at bedside for Estonian translation ) Additional Complaint(s): 61-year-old male with no past medical history presents to emergency department with left sided chest pain 2 weeks. Patient states 2 weeks ago pain started in left shoulder region and has since radiated to left chest wall. No associated shortness of breath or dyspnea on exertion. Patient denies history of similar symptoms. He denies trauma or injury to affected area. Patient states today the pain became worse prompting ED visit. PMD: none Past Medical History Reviewed: Historical Data, Nursing Documentation, Vital Signs Vital Signs: Last Vital Signs Temp 98.4 F 09/27/17 13:49 Pulse 60 09/27/17 13:49 Resp 18 09/27/17 13:49 BP 135/83 09/27/17 13:49 Pulse Ox 99 09/27/17 14:31 - Medical History PMH: Back Problems, Kidney Stones - Surgical History Other surgeries: Lithotripsy - Family History Family History: States: No Known Family Hx - Living Arrangements Living Arrangements: With Family - Social History Current smoker - smoking cessation education provided: No Alcohol: None Drugs: Denies - Home Medications Home Medications: Ambulatory Orders Medication Instructions Recorded Tamsulosin [Flomax] 0.4 mg PO DAILY #30 cap 08/17/17 - Allergies Allergies/Adverse Reactions: Allergies Allergy/AdvReac Type Severity Reaction Status Date / Time No Known Allergies Allergy Verified 05/19/17 01:42 Review of Systems ROS Statement: Except As Marked, All Systems Reviewed And Found Negative Constitutional: Negative for: Fever Cardiovascular: Positive for: Chest Pain. Negative for: Palpitations Respiratory: Negative for: Cough, Shortness of Breath, SOB with Exertion, Wheezing Gastrointestinal: Negative for: Nausea, Vomiting Neurological: Negative for: Headache, Dizziness Physical Exam - Reviewed Nursing Documentation Reviewed: Yes Vital Signs Reviewed: Yes - Physical Exam Appears: Positive for: Well, Non-toxic, No Acute Distress Skin: Positive for: Normal Color. Negative for: Rash Eye Exam: Positive for: Normal appearance Cardiovascular/Chest: Positive for: Regular Rate, Rhythm, Chest Non Tender ( Mild tenderness left anterior chest wall) Respiratory: Positive for: Normal Breath Sounds. Negative for: Wheezing, Respiratory Distress Gastrointestinal/Abdominal: Positive for: Soft. Negative for: Tenderness, Distended, Guarding, Rebound Back: Negative for: L CVA Tenderness, R CVA Tenderness Extremity: Positive for: Normal ROM Neurologic/Psych: Positive for: Alert, Oriented - Laboratory Results Result Diagrams: 09/27/17 15:29 09/27/17 15:29 - ECG Interpretation Of ECG: Normal sinus rhythm 63 bpm, no acute findings, reviewed by PA and ED attending O2 Sat by Pulse Oximetry: 99 Pulse Ox Interpretation: Normal - Other Rad CXR X-Ray: Interpreted by Me, Viewed By Me X-Ray Interpretation: no acute finding Medical Decision Making Medical Decision Makin61 year old with left sided chest pain and left shoulder pain Plan: EKG CXR CBC CMP Trop IVF PO aspirin Patient states that chest pain is only minimally improved after aspirin dose was given. Case was discussed with hospitalist Dr. Simmons who will admit patient for observation. Patient agrees with admission. Disposition - Clinical Impression Clinical Impression: Chest pain - Patient ED Disposition Is Patient to be Admitted: Yes - Disposition Disposition Time: 16:45 Condition: FAIR Forms: [employer] (Yi) - Pt Status Changed To: Hospital Disposition Of: Observation Results - Lab Results Lab Results: 09/27/17 09/27/17 15:29 15:29 WBC 6.1 RBC 4.70 Hgb 13.5 Hct 39.9 MCV 84.9 MCH 28.7 MCHC 33.7 RDW 13.0 Plt Count 207 MPV 8.0 Neut % (Auto) 59.9 Lymph % (Auto) 30.8 [place] % (Auto) 6.1 Eos % (Auto) 2.6 Baso % (Auto) 0.6 Neut # (Auto) 3.6 Lymph # (Auto) 1.9 [place] # (Auto) 0.4 Eos # (Auto) 0.2 Baso # (Auto) 0.0 Sodium 139 Potassium 4.1 Chloride 104 Carbon Dioxide 25 Anion Gap 14 BUN 17 Creatinine 0.7 L Est GFR ( Amer) > 60 Est GFR (Non-Af Amer) > 60 Random Glucose 90 Calcium 9.1 Total Bilirubin 0.9 AST 38 ALT 59 Alkaline Phosphatase 101 Troponin I < 0.0120 Total Protein 7.2 Albumin 4.2 Globulin 3.1 Albumin/Globulin Ratio 1.3
[2017-09-27] MEDS ORDERED: Sodium Chloride 0.9% 1,000 ML IV STA (14:29)
--- NOTE | 2017-09-27 15:28 | RAD ---
Date of service: 09/27/2017 HISTORY: Chest and shoulder pain. COMPARISON: 08/16/2017. FINDINGS: LUNGS: No active pulmonary disease. PLEURA: No significant pleural effusion identified, no pneumothorax apparent. CARDIOVASCULAR: No radiographic findings to suggest acute or significant cardiovascular disease. OSSEOUS STRUCTURES: No significant abnormalities. VISUALIZED UPPER ABDOMEN: Normal. OTHER FINDINGS: None. IMPRESSION: No active disease. No significant interval change compared to the prior examination(s).
[2017-09-27 15:40] LABS: BASO % 0.6 % (0.0-2.0); EOS # 0.2 K/uL (0.0-0.7); EOS % 2.6 % (0.0-4.0); HEMOGLOBIN 13.5 g/dL (12.0-18.0); LYMPH # 1.9 K/uL (1.0-4.3); LYMPH % 30.8 % (20.0-40.0); MEAN CELL VOLUME 84.9 fl (80.0-94.0); MEAN CORPUSCULAR HEMOGLOBIN 28.7 pg (27.0-31.0); MEAN CORPUSCULAR HGB CONC 33.7 g/dL (33.0-37.0); MONO # 0.4 K/uL (0.0-0.8); MONO % 6.1 % (0.0-10.0); NEUT # 3.6 K/uL (1.8-7.0); NEUT % 59.9 % (50.0-75.0); RBC 4.7 Mil/uL (4.40-5.90); WHITE BLOOD COUNT 6.1 K/uL (4.8-10.8)
[2017-09-27 15:51] LABS: ALB/GLOB RATIO 1.3 (1.0-2.1); ALBUMIN 4.2 g/dL (3.5-5.0); ALT/SGPT 59 U/L (21-72); AST/SGOT 38 U/L (17-59); BLOOD UREA NITROGEN 17 mg/dl (9-20); CALCIUM 9.1 mg/dL (8.4-10.2); GFR NON-AFRICAN AMERICAN > 60
--- NOTE | 2017-09-27 17:39 | CP.PCM.HP ---
History of Present Illness - History of Present Illness History of Present Illness: This is a 61 year old male with a past medical history of kidney stones, history of musculoskeletal back pain, who presented to the ED with left sided chest pain starting two weeks ago. The patient states that he began having left sided shoulder pain 2 weeks ago but now states that it is more substernal with radiation to the left shoulder. It feels like a pressure, is constant, and is worse with walking or with exertion. He denies history of similar symptoms. Denies any nausea or diaphoresis today. Denies any trauma to the affected area. In the ED, he was given ASA which improved his pain. Labwork including troponin was negative. EKG normal according to ER physician. Patient being placed on tele /obs to evaluate for acute coronary syndrome. HD stable, NAD at this time. CP improved with Aspirin. PMH: Nephrolithiasis PSH: Surgery in at left lower abdomen for kidney stone removal SH: Former Smoker (smoked 3 packs per day for about 15 years); No alcohol; No illegal drug use; Live with family; Unemployed FH: States: no known family Hx Allergies: NKDA Medication: denies Present on Admission - Present on Admission Any Indicators Present on Admission: No History of DVT/PE: No History of Uncontrolled Diabetes: No Review of Systems - Review of Systems Review of Systems: A 12 point review of systems was conducted and found to be negative other than what was mentioned in the HPI. Past Patient History - Infectious Disease Hx of Infectious Diseases: None - Past Medical History & Family History Past Medical History?: Yes - Past Social History Alcohol: None Drugs: Denies - CARDIAC Hx Cardiac Disorders: No - PULMONARY Hx Respiratory Disorders: No - NEUROLOGICAL Hx Neurological Disorder: No - HEENT Hx HEENT Problems: No - RENAL Hx Kidney Stones: Yes - ENDOCRINE/METABOLIC Hx Endocrine Disorders: No - HEMATOLOGICAL/ONCOLOGICAL Hx Human Immunodeficiency Virus (HIV): No - INTEGUMENTARY Hx Dermatological Problems: No - MUSCULOSKELETAL/RHEUMATOLOGICAL Hx Musculoskeletal Disorders: No Hx Falls: No - GASTROINTESTINAL Hx Gastrointestinal Disorders: No - GENITOURINARY/GYNECOLOGICAL Hx Genitourinary Disorders: No - PSYCHIATRIC Hx Psychophysiologic Disorder: No Hx Substance Use: No - SURGICAL HISTORY Hx Surgeries: Yes Other/Comment: For Left kidney stone removal? in [facility] - ANESTHESIA Hx Anesthesia: Yes Hx Anesthesia Reactions: No Meds Allergies/Adverse Reactions: Allergies Allergy/AdvReac Type Severity Reaction Status Date / Time No Known Allergies Allergy Verified 05/19/17 01:42 Physical Exam - Additional Findings Additional findings: Physical exam: Constitutional- cooperative, awake, alert Head- NCAT, PERRL Eye- PERRL, EOMI ENT- normal exam, MMM. Neck- normal inspection, supple, no JVD Respiratory- CTAB, no wheezes rales rhonchi Cardiovascular- RRR, +S1, +S2 no MRG GI/Abdominal- normal bowel sounds, soft, no mass, no hsm Skin- warm, dry Extremities Exam- normal capillary refill, normal inspection Neurological Exam- alert, awake, oriented Psych- normal mood, normal affect Results - Vital Signs Recent Vital Signs: Last Vital Signs Temp 98.4 F 09/27/17 13:49 Pulse 60 09/27/17 13:49 Resp 18 09/27/17 13:49 BP 135/83 09/27/17 13:49 Pulse Ox 99 09/27/17 16:47 - Labs Result Diagrams: 09/27/17 15:29 09/27/17 15:29 Labs: Laboratory Results - last 24 hr 09/27/17 09/27/17 15:29 15:29 WBC 6.1 RBC 4.70 Hgb 13.5 Hct 39.9 MCV 84.9 MCH 28.7 MCHC 33.7 RDW 13.0 Plt Count 207 MPV 8.0 Neut % (Auto) 59.9 Lymph % (Auto) 30.8 [place] % (Auto) 6.1 Eos % (Auto) 2.6 Baso % (Auto) 0.6 Neut # (Auto) 3.6 Lymph # (Auto) 1.9 [place] # (Auto) 0.4 Eos # (Auto) 0.2 Baso # (Auto) 0.0 Sodium 139 Potassium 4.1 Chloride 104 Carbon Dioxide 25 Anion Gap 14 BUN 17 Creatinine 0.7 L Est GFR ( Amer) > 60 Est GFR (Non-Af Amer) > 60 Random Glucose 90 Calcium 9.1 Total Bilirubin 0.9 AST 38 ALT 59 Alkaline Phosphatase 101 Troponin I < 0.0120 Total Protein 7.2 Albumin 4.2 Globulin 3.1 Albumin/Globulin Ratio 1.3 Assessment & Plan - Assessment and Plan (Free Text) Plan: This is a 61 year old male with a past medical history of kidney stones, history of musculoskeletal back pain, who presented to the ED with left sided chest pain starting two weeks ago. The patient states that he began having left sided shoulder pain 2 weeks ago but now states that it is more substernal with radiation to the left shoulder. It feels like a pressure, is constant, and is worse with walking or with exertion. He denies history of similar symptoms. Denies any nausea or diaphoresis today. Denies any trauma to the affected area. In the ED, he was given ASA which improved his pain. Labwork including troponin was negative. EKG normal according to ER physician. Patient being placed on tele /obs to evaluate for acute coronary syndrome. HD stable, NAD at this time. CP improved with Aspirin. 1) Typical chest pain, evaluate for acute coronary syndrome - Tele/obs - Serial troponins total x 3, first negative - Echocardiogram, low threshold for cardiology consult if positive findings or wall motion abnormalities - ASA 325 mg po daily - Nitrostat PRN for chest pain - repeat EKG in AM - Check TSH, Lipid panel in AM 2) 3.1 mm left lower lung density on previous admission - Pt to have repeat CT chest in 2 months 3) DVT prophylaxis - Heparin SC q 8 hours
[2017-09-27] MEDS ORDERED: Pneumococcal 23-Valent Vaccine IM ONE (21:50)
[2017-09-28 08:22] VITALS: TEMP 98.5
[2017-09-28 12:16] VITALS: BP 134/80; PULSE 57; RESP 20; O2SAT 95
--- NOTE | 2017-09-28 13:35 | CP.PCM.DIS ---
Provider - Provider Date of Admission: 09/27/17 16:43 Attending physician: Mio Simmons MD Time Spent in preparation of Discharge (in minutes): 25 Diagnosis - Discharge Diagnosis (1) Chest pain Status: Acute Comment: no recurrence of chest pain. Troponins were negative for ischemia Hospital Course - Lab Results Lab Results: Most Recent Lab Values WBC 6.1 K/uL (4.8-10.8) 09/27/17 15: RBC 4.70 Mil/uL (4.40-5.90) 09/27/17 15:29 Hgb 13.5 g/dL (12.0-18.0) 09/27/17 15: Hct 39.9 % (35.0-51.0) 09/27/17 15: MCV 84.9 fl (80.0-94.0) 09/27/17 15: MCH 28.7 pg (27.0-31.0) 09/27/17 15: MCHC 33.7 g/dL (33.0-37.0) 09/27/17 15: RDW 13.0 % (11.5-14.5) 09/27/17 15: Plt Count 207 K/uL (130-400) 09/27/17 15: MPV 8.0 fl (7.2-11.7) 09/27/17 15: Neut % (Auto) 59.9 % (50.0-75.0) 09/27/17 15: Lymph % (Auto) 30.8 % (20.0-40.0) 09/27/17 15:29 [place] % (Auto) 6.1 % (0.0-10.0) 09/27/17 15: Eos % (Auto) 2.6 % (0.0-4.0) 09/27/17 15: Baso % (Auto) 0.6 % (0.0-2.0) 09/27/17 15: Neut # (Auto) 3.6 K/uL (1.8-7.0) 09/27/17 15: Lymph # (Auto) 1.9 K/uL (1.0-4.3) 09/27/17 15:29 [place] # (Auto) 0.4 K/uL (0.0-0.8) 09/27/17 15:29 Eos # (Auto) 0.2 K/uL (0.0-0.7) 09/27/17 15:29 Baso # (Auto) 0.0 K/uL (0.0-0.2) 09/27/17 15:29 Sodium 139 mmol/l (132-148) 09/27/17 15:29 Potassium 4.1 MMOL/L (3.6-5.0) 09/27/17 15: Chloride 104 mmol/L (98-107) 09/27/17 15: Carbon Dioxide 25 mmol/L (22-30) 09/27/17 15:29 Anion Gap 14 (10-20) 09/27/17 15:29 BUN 17 mg/dl (9-20) 09/27/17 15:29 Creatinine 0.7 mg/dl (0.8-1.5) L 09/27/17 15:29 Est GFR ( Amer) > 60 09/27/17 15:29 Est GFR (Non-Af Amer) > 60 09/27/17 15:29 Random Glucose 90 mg/dL (75-110) 09/27/17 15: Calcium 9.1 mg/dL (8.4-10.2) 09/27/17 15:29 Total Bilirubin 0.9 mg/dl (0.2-1.3) 09/27/17 15:29 AST 38 U/L (17-59) 09/27/17 15:29 ALT 59 U/L (21-72) 09/27/17 15:29 Alkaline Phosphatase 101 U/L (38-126) 09/27/17 15:29 Troponin I < 0.0120 ng/mL (0.00-0.120) 09/28/17 09:55 Total Protein 7.2 G/DL (6.3-8.2) 09/27/17 15:29 Albumin 4.2 g/dL (3.5-5.0) 09/27/17 15:29 Globulin 3.1 gm/dL (2.2-3.9) 09/27/17 15:29 Albumin/Globulin Ratio 1.3 (1.0-2.1) 09/27/17 15:29 - Hospital Course Hospital Course: 61 yo male with no significant PMH seen in the ER because of left sided chest pain since 2 weeks ago accompanied with left shoulder pain. Patient was placed on chest pain observation and was given ASA. Patient had no recurrence of chest pain while in the unit and 3 sets of Troponins were negative for ischemia. Patient was discharged in stable condition. Discharge Exam - Head Exam Head Exam: ATRAUMATIC - Eye Exam Eye Exam: absent: Scleral icterus - ENT Exam ENT Exam: Mucous Membranes Moist - Respiratory Exam Respiratory Exam: absent: Rales, Rhonchi, Wheezes, Respiratory Distress - Cardiovascular Exam Cardiovascular Exam: REGULAR RHYTHM, +S1, +S2 - GI/Abdominal Exam GI & Abdominal Exam: Soft. absent: Tenderness - Rectal Exam Rectal Exam: Deferred - Back Exam Back exam: NORMAL INSPECTION - Neurological Exam Neurological exam: Alert, Oriented x3 - Psychiatric Exam Psychiatric exam: Normal Affect - Skin Skin Exam: Dry, Intact Discharge Plan - Follow Up Plan Condition: FAIR Disposition: HOME/ ROUTINE Instructions: Chest Pain (DC)
--- NOTE | 2017-09-28 14:24 | CARD ---
APPROVED REPORT Date of service: 09/28/2017 EXAM: Two-dimensional and M-mode echocardiogram with Doppler and color Doppler. Other Information Quality : GoodRhythm : NSR INDICATION Chest Pain 2D DIMENSIONS IVSd0.86 (0.7-1.1cm)LVDd5.13 (3.9-5.9cm) LVOT Diameter2.51 (1.8-2.4cm)PWd0.98 (0.7-1.1cm) IVSs1.25 (0.8-1.2cm)LVDs3.23 (2.5-4.0cm) FS (%) 37.0 %PWs1.19 (0.8-1.2cm) M-Mode DIMENSIONS Left Atrium (MM)4.32 (2.5-4.0cm)IVSd1.00 (0.7-1.1cm) Aortic Root3.29 (2.2-3.7cm)LVDd6.15 (4.0-5.6cm) Aortic Cusp Exc.2.41 (1.5-2.0cm)PWd0.97 (0.7-1.1cm) IVSs1.29 cmFS (%) 38 % LVDs3.79 (2.0-3.8cm)PWs1.79 cm Aortic Valve AoV Peak Cpldlylw427.1cm/sAoV VTI33.6cmAO Peak GR.9mmHg LVOT Peak Sjjjtwmw67.7cm/sLVOT VTI20.08cmAO Mean GR.5mmHg JB (VMAX)1.07of8AMJ (VTI)1.35ui5BL P 1/2 Mxpv262av Mitral Valve MV E Teehxkke35.2cm/sMV DECEL MWGC028hsFQ A Qjgevzxx94.4cm/s MV BOD63ukN/A ratio0.9MVA (PHT)2.47cm2 TDI Lateral E' Peak V14.26cm/sMedial E' Peak V10.43cm/sE/Lateral E'3.5 E/Medial E'4.8 Pulmonary Valve PV Peak Eltacvsz570.9cm/s Tricuspid Valve TR Peak Cytaekwo901sf/sRAP EEDQCRAN95oeMfAM Peak Gr.16mmHg OWKD30ypRm LEFT VENTRICLE The left ventricle is normal size. There is borderline to mild concentric left ventricular hypertrophy. The left ventricular function is normal. The left ventricular ejection fraction is within the normal range. The Ejection Fraction is 60-65%. There is normal LV segmental wall motion. The left ventricular diastolic function is normal. RIGHT VENTRICLE The right ventricle is mildly to moderately dilated. There is normal right ventricular wall thickness. Systolic function is mildly reduced. ATRIA The left atrium is borderline dilated. The right atrium is mildly dilated. AORTIC VALVE The aortic valve is normal in structure. There is mild aortic regurgitation. There is no aortic valvular stenosis. MITRAL VALVE The mitral valve is normal in structure. There is no mitral valve stenosis. Mitral regurgitation is trace to mild. TRICUSPID VALVE The tricuspid valve is normal in structure. There is mild tricuspid regurgitation. PULMONIC VALVE The pulmonary valve is normal in structure. There is no pulmonic valvular regurgitation. GREAT VESSELS The aortic root is normal in size. The IVC is normal in size and collapses >50% with inspiration. PERICARDIAL EFFUSION The pericardium appears normal. <Conclusion> The left ventricular function is normal. The left ventricular ejection fraction is within the normal range. The Ejection Fraction is 60-65%. There is mild aortic regurgitation. Mitral regurgitation is trace to mild. There is mild tricuspid regurgitation. The right ventricle is mildly to moderately dilated. Systolic function is mildly reduced.
--- NOTE | 2017-09-28 15:03 | CARD ---
APPROVED REPORT Date of service: 09/27/2017 EKG Measurement Heart [id number] <Conclusion> Normal sinus rhythm Normal ECG
== END 2017-09-28 15:20 | disposition home or self-care (01) ==
LOC: H.ER 13:33 → H.ERHOLD 16:43 → H.TEL 20:40
DX: R07.89 Other chest pain (principal); Z87.442 Personal history of urinary calculi; Z87.891 Personal history of nicotine dependence; Z23 Encounter for immunization
CPT/HCPCS: 36415; 71045; 80053; 84484; 85025; 90471; 90732; 93005; 93306; 96360; 99285; G0378; J1644; J7030

== ENCOUNTER 2017-10-30 11:31 | Emergency (ER) | payer SELFPAY ==
[2017-10-30 11:31] VITALS: BMI 25.8
[2017-10-30 11:38] VITALS: BP 110/72; PULSE 67; RESP 17; O2SAT 96
[2017-10-30 12:21] VITALS: TEMP 98
--- NOTE | 2017-10-30 12:21 | ED PDOC ---
Lower Extremity Pain/Injury Time Seen by Provider: 10/30/17 12:10 Chief Complaint (Nursing): Lower Extremity Problem/Injury Chief Complaint (Provider): Left Groin Pain History Per: Patient, Quality Consultant (Andresdominikodilon JainCream Cheese Maker [id number]) History/Exam Limitations: no limitations Onset/Duration Of Symptoms: Days (x2) Current Symptoms Are (Timing): Still Present Additional Complaint(s): 62 year old male presents to the ED for evaluation of left groin pain that started two days ago. He denies any injury or trauma, but states it is worse when ambulating and better when resting. Patient has not taken any meds or pain relief prior since pain started 2 days ago. PMD: no PMD Past Medical History Reviewed: Historical Data, Nursing Documentation, Vital Signs Vital Signs: Last Vital Signs Temp 98 F 10/30/17 11:37 Pulse 67 10/30/17 11:37 Resp 17 10/30/17 11:37 BP 110/72 10/30/17 11:37 Pulse Ox 96 10/30/17 11:37 - Medical History PMH: Back Problems, Kidney Stones - Surgical History Other surgeries: lithotripsy - Family History Family History: States: No Known Family Hx - Living Arrangements Living Arrangements: With Family - Social History Current smoker - smoking cessation education provided: No Alcohol: None Drugs: Denies - Home Medications Home Medications: Ambulatory Orders Medication Instructions Recorded Cyclobenzaprine [Cyclobenzaprine 10 mg PO TID PRN #20 tab 10/30/17 HCl] Naproxen [Naprosyn] 500 mg PO BID #20 tab 10/30/17 - Allergies Allergies/Adverse Reactions: Allergies Allergy/AdvReac Type Severity Reaction Status Date / Time No Known Allergies Allergy Verified 05/19/17 01:42 Wells Criteria for PE - Wells Criteria for Pulmonary Embolism Clinical Signs and Symptoms of DVT: No P.E is #1 Diagnosis, or Equally Likely: No Heart Rate >100: No Immobilization at least 3 days;Surgery previous 4 weeks: No Previous, objectively diagnosed PE or DVT: No Hemoptysis: No Malignancy w/treatment within 6 months, or palliative: No Total Score: 0 Review of Systems ROS Statement: Except As Marked, All Systems Reviewed And Found Negative Constitutional: Negative for: Fever Gastrointestinal: Negative for: Vomiting Genitourinary Male: Negative for: Dysuria, Frequency, Incontinence, Hematuria, Penile Discharge, Scrotal Pain, Rash, Penile Pain Musculoskeletal: Positive for: Other (left groin pain, worse on ambulation) Physical Exam - Reviewed Nursing Documentation Reviewed: Yes Vital Signs Reviewed: Yes - Physical Exam Appears: Positive for: Uncomfortable Head Exam: Positive for: NORMOCEPHALIC Skin: Positive for: Normal Color. Negative for: Rash Eye Exam: Positive for: Normal appearance Gastrointestinal/Abdominal: Positive for: Normal Exam, Soft. Negative for: Tenderness, Distended, Guarding, Rebound Back: Positive for: Normal Inspection. Negative for: L CVA Tenderness, R CVA Tenderness, Vertebral Tenderness Extremity: Positive for: Other (localized tenderness to left grion region with pain elicited on movement of left leg; no skin breakdown or cellulitis) Lymphatic: Positive for: Adenopathy (no adenopathy to groin region b/l) Neurologic/Psych: Positive for: Alert, Oriented - Laboratory Results Urine dip results: Negative for: Leukocyte Esterase, Blood, Nitrate, Ketones, Glucose, Bilirubin, Protein - ECG O2 Sat by Pulse Oximetry: 96 (RA) Pulse Ox Interpretation: Normal - Other Rad Left hip and pelvis x-ray X-Ray: Interpreted by Me, Viewed By Me X-Ray Interpretation: no fx, no dis Medical Decision Making Medical Decision Making: Time: 1220 Impression: 62 year old male with left atraumatic groin pain Initial Plan: --Toradol IM --Tylenol PO --Left hip with pelvis XR Patient reports improvement to pain after meds given. Prescriptions for Naprosyn and Flexeril provided. Patient was referred to clinic for follow-up and was advised to return to ED if acutely worse at any time. ~ Scribe Attestation: Documented by Zena Farmer, acting as a scribe for Ina Hwang PA-C. Provider Scribe Attestation: All medical record entries made by the Scribe were at my direction and personally dictated by me. I have reviewed the chart and agree that the record accurately reflects my personal performance of the history, physical exam, medical decision making, and the department course for this patient. I have also personally directed, reviewed, and agree with the discharge instructions and disposition. Disposition - Clinical Impression Clinical Impression: Groin strain - Patient ED Disposition Is Patient to be Admitted: No Counseled Patient/Family Regarding: Studies Performed, Diagnosis, Need For Followup, Rx Given - Disposition Referrals: [facility] [Outside] Disposition: Routine/Home Disposition Time: 13:33 Condition: IMPROVED Additional Instructions: Take prescription meds as directed. Rest and avoid heavy lifting. Follow-up with clinic for any persistent symptoms or return to ED any time if acutely worse. Prescriptions: Cyclobenzaprine [Cyclobenzaprine HCl] 10 mg PO TID PRN #20 tab PRN Reason: Muscle Spasm Naproxen [Naprosyn] 500 mg PO BID #20 tab Instructions: Groin Strain, Active Range of Motion Exercises, Back and Hips, Stretching Exercises for Your Lower Body Forms: [employer] (Yoruba) Print Language: OCCITAN
--- NOTE | 2017-10-30 15:35 | RAD ---
PROCEDURE: Left Hip X-ray Radiographs. HISTORY: left groin pain COMPARISON: None. FINDINGS: BONES: Normal. No fracture. JOINTS: Normal. SOFT TISSUES: Normal. OTHER FINDINGS: None. IMPRESSION: Normal left hip radiographs.
== END 2017-10-30 13:54 | disposition home or self-care (01) ==
LOC: H.ER 11:31
DX: S39.011A Strain of muscle, fascia and tendon of abdomen, initial encounter (principal); Z87.442 Personal history of urinary calculi
CPT/HCPCS: 73502; 96372; 99283; J1885

== ENCOUNTER 2018-02-21 09:42 | Emergency (ER) | payer SELFPAY ==
[2018-02-21 10:01] VITALS: RESP 18; BMI 30.2
--- NOTE | 2018-02-21 10:57 | ED PDOC ---
HPI: Back Time Seen by Provider: 02/21/18 10:18 Chief Complaint (Nursing): Back Pain Chief Complaint (Provider): Back Pain History Per: Patient History/Exam Limitations: no limitations Onset/Duration Of Symptoms: Days (2x) Current Symptoms Are (Timing): Intermittent Episodes Quality Of Discomfort: "Pain" Exacerbating Factor(s): Movement Additional Complaint(s): 62 year old male presents to the ED for an evaluation of lower back pain onset for 2 days. He states the pain comes and goes, intermittently and becomes worse with movement upon walking and bending. Patient describes the pain as waves and spasm. Otherwise he denies leg pain, numbness, weakness or fever. PMD: no family provider Past Medical History Reviewed: Historical Data, Nursing Documentation, Vital Signs Vital Signs: Last Vital Signs Temp 97.8 F 02/21/18 10:01 Pulse 77 02/21/18 10:01 Resp 18 02/21/18 10:01 BP 125/82 02/21/18 10:01 Pulse Ox 97 02/21/18 10:01 - Medical History PMH: Back Problems, Kidney Stones Denies: HIV, Chronic Kidney Disease - Family History Family History: States: Unknown Family Hx - Social History Current smoker - smoking cessation education provided: No Alcohol: None Drugs: Denies - Home Medications Home Medications: Ambulatory Orders Medication Instructions Recorded Cyclobenzaprine [Cyclobenzaprine 10 mg PO TID PRN #20 tab 02/21/18 HCl] Naproxen [Naprosyn] 500 mg PO BID #20 tab 02/21/18 - Allergies Allergies/Adverse Reactions: Allergies Allergy/AdvReac Type Severity Reaction Status Date / Time No Known Allergies Allergy Verified 05/19/17 01:42 Review of Systems ROS Statement: Except As Marked, All Systems Reviewed And Found Negative Constitutional: Negative for: Fever Respiratory: Negative for: Cough, Shortness of Breath Musculoskeletal: Positive for: Back Pain. Negative for: Leg Pain Neurological: Negative for: Weakness, Numbness Physical Exam - Reviewed Nursing Documentation Reviewed: Yes Vital Signs Reviewed: Yes - Physical Exam Appears: Positive for: Non-toxic, No Acute Distress Head Exam: Positive for: ATRAUMATIC, NORMAL INSPECTION, NORMOCEPHALIC Skin: Positive for: Normal Color, Warm, Dry. Negative for: Rash Eye Exam: Positive for: EOMI, Normal appearance, PERRL ENT: Positive for: Normal ENT Inspection Neck: Positive for: Normal, Painless ROM Cardiovascular/Chest: Positive for: Regular Rate, Rhythm. Negative for: Murmur Respiratory: Positive for: Normal Breath Sounds. Negative for: Decreased Breath Sounds, Wheezing, Respiratory Distress Gastrointestinal/Abdominal: Positive for: Normal Exam, Soft. Negative for: Tenderness Back: Negative for: Normal Inspection (lower back diffuse tenderness ), Muscle Spasm Extremity: Positive for: Normal ROM. Negative for: Tenderness, Pedal Edema, Deformity Neurologic/Psych: Positive for: Alert, Oriented (x3), Gait (steady). Negative for: Motor/Sensory Deficits - ECG O2 Sat by Pulse Oximetry: 97 (RA) Pulse Ox Interpretation: Normal - Progress Re-evaluation Time: 12:37 Condition: Re-examined, Improved Medical Decision Making Medical Decision Making: Time: 1026 Initial Impression: lower back pain Differential Diagnosis: muscle spasm Initial Plan: ED urine dipstick Flexeril 10mg Toradol 30mg Reevaluation Scribe Attestation: Documented by Christen Narvaez, acting as a scribe for Urbano Arnold MD Provider Scribe Attestation: All medical record entries made by the Scribe were at my direction and personally dictated by me. I have reviewed the chart and agree that the record accurately reflects my personal performance of the history, physical exam, medical decision making, and the department course for this patient. I have also personally directed, reviewed, and agree with the discharge instructions and disposition. Disposition - Clinical Impression Clinical Impression: Low back pain - Patient ED Disposition Is Patient to be Admitted: No Counseled Patient/Family Regarding: Studies Performed, Diagnosis - Disposition Referrals: [facility] [Outside] Disposition: Routine/Home Disposition Time: 12:37 Condition: GOOD Additional Instructions: WIN OQUENDO, thank you for letting us take care of you today. Your provider was Urbano Arnold MD and you were treated for BACK PAIN. The emergency medical care you received today was directed at your acute symptoms. If you were prescribed any medication, please fill it and take as directed. It may take several days for your symptoms to resolve. Return to the Emergency Department if your symptoms worsen, do not improve, or if you have any other problems. Please contact your doctor or call one of the physicians/clinics you have been referred to that are listed on the Patient Visit Information form that is included in your discharge packet. Bring any paperwork you were given at discharge with you along with any medications you are taking to your follow up visit. Our treatment cannot replace ongoing medical care by a primary care provider outside of the emergency department. Thank you for allowing the [facility] team to be part of your care today. If you had an X-Ray or CT scan: A Radiologist will review the ED reading if any change in treatment is needed we will contact you. If you had a blood, urine, or wound culture: It will take several days for the results, if any change in treatment is needed we will contact you. If you had an STI test: It will take 48 hours for the results. Please call after 1 week if you have not heard back. Prescriptions: Cyclobenzaprine [Cyclobenzaprine HCl] 10 mg PO TID PRN #20 tab PRN Reason: Muscle Spasm Naproxen [Naprosyn] 500 mg PO BID #20 tab Instructions: Low Back Pain (DC) Print Language: RUSSIAN
[2018-02-21 13:48] VITALS: BP 131/89; PULSE 62; TEMP 97; O2SAT 98
== END 2018-02-21 13:44 | disposition home or self-care (01) ==
LOC: H.ER 09:42
DX: M54.5 Low back pain (principal); Z87.442 Personal history of urinary calculi
CPT/HCPCS: 96372; 99284; J1885